=== PATIENT | male | born 1995 | race Two or more races ===

== ENCOUNTER 2024-09-12 17:38 | Emergency (ER) | payer MEDICAID ==
[~2024-09-12] VITALS: Ht 170.2 cm; Wt 68.0 kg
--- NOTE | 2024-09-12 18:19 | ED.PDOC ---
History of Present Illness HPI Comments 29 y/o M is BIBA from local crisis center for suicidal ideations. Per EMS report, patient inquired staff to call for persisting suicidal ideations, which including overdosing on [id number] medication and dying from dehydration. Denies any homicidal ideations, auditory or visual hallucinations, along with other associated symptoms. Chief Complaint: Suicidal Time Seen by MD: 18:00 Primary Care Provider: MALINA Reviewed Notes: Nurses Notes, Paper Stripper Notes, Medications, Allergies Allergies: Coded Allergies: NO KNOWN ALLERGIES (Unverified , 09/12/24) Information Source: Patient, Emergency Med Personnel Mode of Arrival: EMS Severity: Moderate Timing: Hours Duration: Since onset Prehospital treatment: 12 Lead EKG, Electric Relay Tester Past Medical History PAST MEDICAL HISTORY: Denies Past Medical History (Other): suicidal ideations Surgical History: Denies all surgeries Family History Family History: Unknown Social History Smoker: Non-Smoker Alcohol: Denies ETOH Use Drugs: Denies Drug Use Lives In: Home Constitutional: denies: chills, diaphoresis, fatigue, fever, malaise, sweats, weakness, others EENTM: denies: blurred vision, double vision, ear bleeding, ear discharge, ear drainage, ear pain, ear ringing, eye pain, eye redness, hearing loss, mouth pain, mouth swelling, nasal discharge, nose bleeding, nose congestion, nose pain, photophobia, tearing, throat pain, throat swelling, voice changes, others Respiratory: denies: cough, hemoptysis, orthopnea, SOB at rest, shortness of breath, SOB with excertion, stridor, wheezing, others Cardiovascular: denies: chest pain, dizzy spells, diaphoresis, Dyspnea on exertion, edema, irregular heart beat, left arm pain, lightheadedness, palpitations, PND, syncope, others Gastrointestinal: denies: abdomen distended, abdominal pain, blood streaked bowels, constipated, diarrhea, dysphagia, difficulty swallowing, hematemesis, melena, nausea, poor appetite, poor fluid intake, rectal bleeding, rectal pain, vomiting, others Genitourinary: denies: burning, dysuria, flank pain, frequency, hematuria, incontinence, penile discharge, penile sore, pain, testicle pain, testicle swelling, urgency, others Neurological: denies: dizziness, fainting, headache, left sided numbness, left sided weakness, numbness, paresthesia, pre-existing deficit, right sided numbness, right sided weakness, seizure, speech problems, tingling, tremors, weakness, others Musculoskeletal: denies: back pain, gout, joint pain, joint swelling, muscle pain, muscle stiffness, neck pain, others Integumetry: denies: bruises, change in color, change in hair/nails, dryness, laceration, lesions, lumps, rash, wounds, others Allergic/Immunocompromised: denies: Difficulty Healing, Frequent Infections, Hives, Itching, others Hematologic/Lymphatic: denies: anemia, blood clots, easy bleeding, easy bruising, swollen glands, others Endocrine: denies: excessive hunger, excessive sweating, excessive thirst, excessive urination, flushing, intolerance to cold, intolerance to heat, unexplained weight gain, unexplained weight loss, others Psychiatric: reports: suicidal; denies: anxiety, bipolar disorder, depression, hopeless, panic disorder, schizophrenia, sleepless, others All Other Systems: Reviewed and Negative (Comprehensive review of systems are negative unless otherwise stated in HPI) Physical Exam General Appearance: Moderate Distress (Patient has moderate distress due to suicidal ideation concerns. Patient appears depressed.), Normal HEENT: Normal ENT Inspection, Pharynx Normal, TMs Normal Neck: Full Range of Motion, Non-Tender, Normal, Normal Inspection Respiratory: Chest Non-Tender, Lungs Clear, No Accessory Muscle Use, No Respiratory Distress, Normal Breath Sounds Cardiovascular: No Edema, No JVD, No Murmur, No Gallop, Normal Peripheral Pulses, Regular Rate/Rhythm Breast Exam: Deferred Gastrointestinal: No Organomegaly, Non Tender, No Pulsatile Mass, Normal Bowel Sounds, Soft Genitalia: Deferred Pelvic: Deferred Rectal: Deferred Extremities: No calf tenderness, Normal capillary refill, Normal inspection, Normal range of motion, Non-tender, No pedal edema Neurologic: Alert, No Motor Deficits, No Sensory Deficits Cerebellar Function: NOT DONE Reflexes: NOT DONE Skin: Dry, Normal Color, Warm Lymphatic: No Adenopathy Was a procedure done? Was a procedure done?: No Differential Dx Considerations may include: suicidal, hopelessness, depression, substance abuse/dependency, among others X-Ray, Labs, Meds, VS Vital Signs Date Time Temp Pulse Resp B/P (MAP) Pulse Ox O2 Delivery O2 Flow Rate FiO2 7/20/25 00:15 64 18 146/91 (109) 97 09/12/24 22:23 98.3 68 18 136/58 (84) 99 98.3 09/12/24 18:19 98.0 78 16 139/86 (103) 95 98.0 Lab Test 09/12/24 19:14 09/12/24 18:14 Range/Units Urine Color Light-yellow Yellow Urine Clarity Clear Clear Urine pH 7.0 5.0-9.0 Urine Specific [place] 1.015 1.001-1.035 Urine Protein Negative Negative Urine Ketones Negative Negative Urine Blood Negative Negative /uL Urine Nitrite Negative Negative Urine Bilirubin Negative Negative Urine Urobilinogen Normal Negative mg/dL Urine Leukocyte Esterase Negative Negative /uL Urine RBC None seen 0 - 3 /hpf Urine Microscopic WBC < 1 0-3 /HPF Urine Squamous Epithelial Cells None seen <5 /hpf Urine Bacteria None seen None Seen /hpf Urine Glucose Normal Normal mg/dL Urine Opiates Screen Neg NEGATIVE Urine Fentanyl Screen Neg NEGATIVE Urine Barbiturates Screen Neg NEGATIVE Urine Phencyclidine Screen Neg NEGATIVE Urine Amphetamines Screen Neg NEGATIVE Urine Benzodiazepines Screen Neg NEGATIVE Urine Cocaine Screen Neg NEGATIVE Urine Cannabinoids Screen Pos NEGATIVE White Blood Count 7.5 4.4-10.8 10^3/uL Red Blood Count 4.85 4.5-5.90 10^6/uL Hemoglobin 14.7 13.5-17.5 g/dL Hematocrit 43.9 41.0-53.0 % Mean Corpuscular Volume 90.7 80.0-100.0 fL Mean Corpuscular Hemoglobin 30.3 28.0-32.0 pg Mean Corpuscular Hemoglobin Concent 33.4 32.0-36.0 g/dL Red Cell Distribution Width 14.1 11.8-14.3 % Platelet Count 207 140-450 10^3/uL Mean Platelet Volume 8.8 6.9-10.8 fL Neutrophils (%) (Auto) 53.1 37.0-80.0 % Lymphocytes (%) (Auto) 31.6 10.0-50.0 % Monocytes (%) (Auto) 9.7 0.0-12.0 % Eosinophils (%) (Auto) 5.0 0.0-7.0 % Basophils (%) (Auto) 0.6 0.0-2.0 % Neutrophils # (Auto) 4.0 1.6-8.6 10 ^3/uL Lymphocytes # (Auto) 2.4 0.4-5.4 10 ^3/uL Monocytes # (Auto) 0.7 0-1.3 10 ^3/uL Eosinophils # (Auto) 0.4 0-0.8 10 ^3/uL Basophils # (Auto) 0 0-0.2 10 ^3/uL Nucleated Red Blood Cells 0.1 % Sodium Level 140 136-145 mmol/L Potassium Level 4.2 3.5-5.1 mmol/L Chloride Level 108 H 98-107 mmol/L Carbon Dioxide Level 27 20-31 mmol/L Anion Gap 5 5-15 Blood Urea Nitrogen 7 L 9-23 mg/dL Creatinine 0.73 0.700-1.30 mg/dL Glomerular Filtration Rate Calc 126 >90 mL/min BUN/Creatinine Ratio 9.6 L 10.0-20.0 Serum Glucose 97 74-106 mg/dL Calcium Level 9.6 8.7-10.4 mg/dL Plasma/Serum Blood Alcohol < 3.0 <10 mg/dL Current Medications Medications (Trade) Dose Ordered Sig/Bette Route Start Time Stop Time Status Last Admin Ibuprofen (Motrin Tablet) 800 mg ONCE ONCE PO 09/13/24 00:15 09/13/24 00:16 DC 09/13/24 00:13 X-Ray, Labs, Meds, VS Comment All studies performed the ED were evaluated by me personally. Serum studies were unremarkable for any systemic process and patient is drug screen only included cannabis. Patient has been medically cleared for his psych evaluation. Spoke with Dr. Camara with respect to his psychiatric evaluation. Advised with the patient needs to be placed in inpatient care. Dr. Camara states patient needs to be on Wellbutrin XL 150 mg in the a.m.. Depakote 500 mg twice a day in the morning and night. Cervical 300 mg a.m. and p.m. as well as Adderall in the a.m.. Patient will be given a dose of Depakote 500 mg and Seroquel 300 mg now and we will attempt to find a bed for the patient. Time of 1ST Reevaluation: 01:08 Reevaluation 1ST: Unchanged Consultation: PCP, Psychiatry Patient Education/Counseling: Diagnosis, Treatment, Other (ED observation ) Family Education/Counseling: Diagnosis, Treatment, No Family Present SEPSIS Sepsis Screen Recent Procedure: No On Antibiotic Therapy: No Respiratory Rate >20: No Heart Rate >90: No Temp<36 C (96.8 F) or >38.3 C: No SBP <90 or MAP <65 mmHG: No New Acute Mental Status Change: No Is the patient on CPAP, BIPAP,: No Physician Orders * Psychiatric Consult (09/12/24 19:56) Place Under Ed Observation (09/13/24 01:09) Vital Signs Date Time Temp Pulse Resp B/P (MAP) Pulse Ox O2 Delivery O2 Flow Rate FiO2 09/13/24 00:15 64 18 146/91 (109) 97 09/12/24 22:23 98.3 68 18 136/58 (84) 99 98.3 09/12/24 18:19 98.0 78 16 139/86 (103) 95 98.0 Laboratory Tests Test 09/12/24 18:14 White Blood Count 7.5 10^3/uL (4.4-10.8) Medications Medications Dose Ordered Sig/Bette Route Start Time Stop Time Status Last Admin Dose Admin Ibuprofen 800 mg ONCE ONCE PO 09/13/24 00:15 09/13/24 00:16 DC 09/13/24 00:13 Departure 1 Departure Time of Disposition: 01:08 Impression: Primary Impression: Suicidal ideation Additional Impression: Depression Disposition: 30 STILL A PATIENT Condition: Fair Discharged With: Self Critical Care Note Critical Care Time?: No Stability Stability form required: No Heart Score Heart Score: Heart Score Response (Comments) Value History N/A 0 EKG N/A 0 Age N/A 0 Risk Factors N/A 0 Troponin N/A 0 Total 0 I personally scribed for CALVIN JEFFRIES PAC ([email or web address]) on 09/12/24 at 18:19. Electronically submitted by Sundar Jansen [email or web address]). CALVIN JEFFRIES PAC Sep 12, 2024 18:19
[2024-09-12 18:41] LABS: Hematocrit 43.9 % (41.0-53.0); Hemoglobin 14.7 g/dL (13.5-17.5); Mean Corpuscular Hemoglobin 30.3 pg (28.0-32.0); Mean Corpuscular Volume 90.7 fL (80.0-100.0); Nucleated Red Blood Cells % 0.1 %
[2024-09-12 18:43] LABS: Potassium 4.2 mmol/L (3.5-5.1); Sodium 140 mmol/L (136-145)
[2024-09-12 18:44] LABS: Anion Gap 5 (5-15); Carbon Dioxide 27 mmol/L (20-31)
[2024-09-12 18:45] LABS: Calcium 9.6 mg/dL (8.7-10.4)
[2024-09-12 18:47] LABS: Chloride 108 mmol/L (98-107)
[2024-09-12 18:49] LABS: Glucose 97 mg/dL (74-106)
[2024-09-12 18:50] LABS: BUN/Creatinine Ratio 9.6 (10.0-20.0)
[2024-09-12 18:51] LABS: Blood Urea Nitrogen 7 mg/dL (9-23)
[2024-09-12 19:23] LABS: Urine Protein, UAD Negative (Negative)
[2024-09-12 19:42] LABS: Cannabinoid Screen, Urine Pos (NEGATIVE); Opiate Scree,Urine Neg (NEGATIVE)
[2024-09-12 19:43] LABS: Amphetamine Screen, Urine Neg (NEGATIVE); Barbiturate Scree,Urine Neg (NEGATIVE); Benzodiazephine Screen, Urine Neg (NEGATIVE); Cocaine Screen, Urine Neg (NEGATIVE); Phencyclidine Screen, Urine Neg (NEGATIVE)
[2024-09-12] MEDS: KETOROLAC TROMETH 60MG/2ML VIAL IM ONE (21:15)
--- NOTE | 2024-09-12 21:50 | DVHINCON2 ---
Date of Service if different f: Sep 12, 2024 Time of Service: 21:17 Consult Consult Note PSYCHIATRY ED NEW CONSULT HPI: 29 yo pt with PPH of depression, bipolar, and anxiety presents to ED BIBA for safety, psychiatric stabilization, and possible med initiation/optimization in setting of homelessness, depression, anxiety, and passive SI. Psychiatry consulted for safety evaluation and recommendations in context of current presentation Pt reports over past several weeks experiencing worsening depressed mood, hopelessness/helplessness, negative thoughts, isolation/withdrawn, excessive guilt, loss of interest, decreased energy, difficulty with focus, poor sleep/appetite, low self-worth, amotivation, some decline in self-care and anxiety symptoms to include excessive worry, rumination, restlessness, racing/intrusive thoughts, palpitations, feeling tensed, and irritability although some symptoms appear chronic in nature. Also intermittent SI that are fleeting with plan to OD on OTC meds or dehydrate self resulting in some interference with daily functioning. Identifies primary stress as unemployment, lack of meaningful relationships, inadequate housing, limited support system, and missing his daughter/family. Denies HI/AVH/paranoia/catatonic/perceptual disturbances. No overt manic, psychotic, cognitive, dissociative phenomena, panic, OCD, PTSD, or somatic symptoms noted Does not have active outpt MH services established at this time although has sought outpt MH services in recent past. Currently not on any psychotropic agents for past several weeks, most recently rx'd wellbutrin XL 150, depakote 500 mg bid, seroquel 300 mg qhs, adderall 10 mg qd, overall med compliant althou gh hx of med noncompliance noted Denies ETOH, THC or IDU prior to admission although some hx of THC (DOC)/ETOH/cocaine dependency, sober for past several months, never IVDU, never previously in any drug/etoh tx programs in past Single, one 10 yo daughter who resides with with some contact, unemployed, homeless for past several weeks, limited support system noted (immediate family) Unknown trauma hx. Denies FH of psych hospitalizations, suicide attempts, or completed suicides No acute medical/chronic pain issues, hx of seizures/TBI, or recent head injuries, NKDA Some hx of SI/SA via drug OD/PSG resulting in prior psych hospitalizations/5150 holds, most recent admission several months ago in . Remote history of aggression/ assaultive behaviors resulting in prior arrests. Denies recent hx of impulsivity, attention seeking behaviors, anger outbursts, emotional dysregulation, mood reactivity, or engaging in risky/reckless behaviors. Denies any legal problems presently. Does not have access to firearms MSE: General Appearance/Behavior: Alert/awake; appears stated age, tearful, fair grooming/hygiene; calm/polite and cooperative, fair eye contact, no PMA/PMR Speech: coherent, rrr Thought Process: L/L/GD Thought Content: Abnormal Thoughts/Perceptions: denies dissociative symptoms Homicidality / Violent Thoughts: adamantly denies HI Suicidality: passive SI Hallucinations: denies AVTH Delusions: denies paranoia, persecutory, or grandiose delusions Obsessions /compulsions: None Judgment/Insight: fair/fair Mood & Affect: "depressed" with mood-congruent, somewhat restricted/appropriate Orientation: oriented x 3 Attention/Concentration: appears intact Cognition: grossly intact Assessment: 29 yo pt with PPH of depression, bipolar, and anxiety presents to ED BIBA for safety, psychiatric stabilization, and possible med initiation/optimization in setting of homelessness, depression, anxiety, and passive SI Pt currently expressing some SI with moderate interference in daily functioning in setting of several recent acute life stressors (see hpi). Limited protective factors presently. Not on any psychotropics for past several weeks which may be contributing to current symptoms. No outpt MH services at present. Pt agrees to talk with staff instead of acting on any suicidal feelings while in ED. Pt medically cleared in ED Acute safety risk remains moderate and is appropriate for inpatient psychiatric admission for further safety, psychiatric stabilization, and possible medication initiation/optimization. Pt willing to transfer to inpt psych facility voluntarily. Consider 5150 hold for DTS ONLY if needed for transfer or if no voluntary beds are available Primary Diagnosis: Major Depressive disorder, moderate/severe, w/o PF. PSA, in unspecified remission Recommend VOL transfer to inpt psych facility for higher level of care 1:1 sitter is recommended Maintain suicide precautions Recommend continuation of current outpt med regimen - wellbutrin XL 150 qd, depakote 500 mg bid (first dose now) seroquel 300 mg qhs (first dose now), adderall 10 mg qd Defer any psychotropic med changes to accepting inpt psych facility Risks/benefits/alternative treatments discussed, informed consent provided by pt If patient later refuses voluntary hospitalization/ requests to be discharged from ED prior to transfer, please reconsult telepsych services to evaluate for 5150 hold Pt verbalized understanding and is receptive to above tx plan This case was discussed with ED nurse/provider and all parties in agreement with above tx plan Evan aCmara MD Plan discussed with: Patient EVAN CAMARA MD Sep 12, 2024 21:50
[2024-09-13] MEDS: IBUPROFEN 800 MG TAB PO ONE (00:13)
[2024-09-13 05:49] VITALS: O2SAT 98
[2024-09-13 09:36] VITALS: RESP 18; O2SAT 98
[2024-09-13] MEDS: LORazepam 0.5 MG TAB PO ONE (14:04)
[2024-09-14 02:55] VITALS: RESP 18
--- NOTE | 2024-09-14 04:53 | ED.PDOC ---
Departure 1 Departure Time of Disposition: 04:53 (Patient is resting comfortably. Patient is still awaiting psychiatric placement.) Impression: Primary Impression: Suicidal ideation Additional Impression: Depression Qualified Codes: F32.A - Depression, unspecified Disposition: 30 STILL A PATIENT Condition: Fair Discharged With: Self RASHAD BUSTAMANTE MD Sep 14, 2024 04:53
[2024-09-14 09:30] VITALS: PULSE 89; RESP 15; O2SAT 98
[2024-09-14] MEDS: LORazepam 0.5 MG TAB PO ONE (14:18)
[2024-09-14 17:12] VITALS: BP 137/75; PULSE 88; RESP 20; TEMP 98.9; O2SAT 98
== END 2024-09-14 17:23 | disposition short-term general hospital (02) ==
LOC: ER 17:38 → EDBD 17:38 → ER 09-14 17:23
DX: R45.851 Suicidal ideations (principal); F32.A Depression, unspecified; Z79.899 Other long term (current) drug therapy
CPT/HCPCS: 36415; 80048; 80307; 80320; 81001; 85025; J1885